=== PATIENT | male | born 1950 | race Two or more races ===

== ENCOUNTER 2023-08-10 23:09 | Inpatient (IN) | payer MEDICARE, MEDICAID ==
[~2023-08-10] VITALS: Ht 188 cm; Wt 52.0 kg
[2023-08-10] MEDS ORDERED: dilTIAZem 25 MG/5 ML VIAL IV ONE ×2 (23:25→23:45)
[2023-08-10] MEDS ORDERED: FUROSEMIDE 40 MG/4 ML VIAL IV ONE ×2 (23:45)
[2023-08-10] MEDS ORDERED: ADENOSINE 6 MG/2 ML INJ IV ONE (23:45)
[2023-08-10 23:54] LABS: Hematocrit 46.8 % (41.0-53.0); Hemoglobin 15.4 g/dL (13.5-17.5); Mean Corpuscular Hemoglobin 30.1 pg (28.0-32.0); Mean Corpuscular Volume 91.2 fL (80.0-100.0); Red Blood Cells 5.13 10^6/uL (4.5-5.90); Red Cell Distribution Width 17.2 % (11.8-14.3); White Blood Cell 25.4 10^3/uL (4.4-10.8)
[2023-08-10 23:57] LABS: Basophils % (manual) 0 (0.0-2.0); Blast Cells 0; Eosinophils % (manual) 0 (0-7); Metamyelocytes % 0; Myelocytes % 0; Promyelocytes % 0; Reactive Lymphocytes 0
[2023-08-11] VITALS (13 sets, daily range): BP systolic 82–111; BP diastolic 49–84; PULSE 85–103; RESP 17–34; TEMP 97.5–98.4; O2SAT 96–100
[2023-08-11] MEDS ORDERED: dilTIAZem 25 MG/5 ML VIAL IV ONE
[2023-08-11 00:10] LABS: Lactic Acid w/Reflex 3.6 mmol/L (0.4-2.0)
[2023-08-11 00:13] LABS: Alanine Aminotransferase 33 U/L (7-40); Albumin 4.5 g/dL (3.2-4.8); Alkaline Phosphatase 142 U/L (46-116); Anion Gap 12 (5-15); Aspartate Aminotransferase 28 U/L (13-40); BUN/Creatinine Ratio 14.9 (10.0-20.0); Bilirubin, Total 1.1 mg/dL (0.2-1.0); Blood Urea Nitrogen 14 mg/dL (9-23); Calcium 9.2 mg/dL (8.7-10.4); Carbon Dioxide 19 mmol/L (20-30); Chloride 102 mmol/L (98-107); Glucose 387 mg/dL (74-106); Magnesium 1.7 mg/dL (1.6-2.6); Potassium 4.4 mmol/L (3.5-5.1); Sodium 133 mmol/L (136-145); Total Protein 7.2 g/dL (5.7-8.2)
[2023-08-11] MEDS ORDERED: MORPHINE SULFATE 4 MG/ML SYR/VIAL IV ONE (00:15)
[2023-08-11] MEDS ORDERED: ONDANSETRON HCL 4 MG/2 ML VIAL IV ONE (00:15)
[2023-08-11 00:34] LABS: Band Neutrophils % (manual) 1; Lymphocytes % (manual) 4 (10.0-50.0); Monocytes % (manual) 3 (0-12); Platelet Estimate Adequate
[2023-08-11] MEDS ORDERED: levoFLOXacin 750MG 150 ML IV ONE (00:45)
[2023-08-11] MEDS ORDERED: IOHEXOL 350 MG/ML 100ML IJ ONE (00:56)
[2023-08-11] MEDS ORDERED: KETOROLAC TROMETH 30 MG/ML 1ML VIAL IV ONE ×2 (01:30→02:45)
[2023-08-11] MEDS ORDERED: ASPirin 325 MG TAB PO ONE (02:45)
[2023-08-11] MEDS ORDERED: NITROGLYCERIN 0.4 MG SL TAB SL PRN (03:00)
[2023-08-11] MEDS ORDERED: ACETAMINOPHEN 325 MG TAB PO PRN (03:00)
[2023-08-11] MEDS ORDERED: ONDANSETRON HCL 4 MG/2 ML VIAL IV PRN (03:00)
[2023-08-11] MEDS ORDERED: DOCUSATE SOD 100 MG CAP PO PRN (03:00)
[2023-08-11] MEDS ORDERED: VANCOMYCIN PER PHARMACY 0 MG IV SCH (03:00)
[2023-08-11] MEDS ORDERED: DEXTROSE (50%) 50ML SYRG IV PRN (03:00)
[2023-08-11] MEDS ORDERED: VANCOMYCIN 1GM/250ML 250 ML IV ONE (03:30)
[2023-08-11 03:42] LABS: Rapid Influenza A Negative (Negative); Rapid Influenza B Negative (Negative)
[2023-08-11 03:43] LABS: COVID19 ANTIGEN SOFIA FIA NEGATIVE (NEGATIVE)
[2023-08-11] MEDS ORDERED: NOREPINEPHRINE 8 MG/250ML KIT 250 ML IV SCH (04:15)
[2023-08-11] MEDS ORDERED: NOREPINEPHRINE 8 MG/250ML KIT 250 ML IV ONE (04:16)
[2023-08-11] MEDS ORDERED: PHENTOLAMINE MESYLATE 5 MG INJ VIAL SUBCUT ONE (05:15)
[2023-08-11] MEDS: ACCU-CHEK COMFORT CURVE STRIP VI SCH ×4 (06:00→23:29)
[2023-08-11] MEDS: SODIUM CHLOR 0.9% PF (SALINE LOCK) 10ML VIAL/SYR IV SCH ×3 (06:00→22:07)
[2023-08-11] MEDS: InsuLIN REG 1unit/0.01ml Soln (100units/ml) SC SCH ×4 (06:57→23:36)
[2023-08-11] MEDS ORDERED: diphenhdrAMINE HCL 50 MG/1 ML VL IV PRN (07:15)
[2023-08-11 07:46] LABS: Basophils # (auto) 0.1 10 ^3/uL (0-0.2); Basophils % (auto) 0.5 % (0.0-2.0); Eosinophils # (auto) 0 10 ^3/uL (0-0.8); Hematocrit 41.1 % (41.0-53.0); Hemoglobin 13.6 g/dL (13.5-17.5); Lymphocytes # (auto) 1.1 10 ^3/uL (0.4-5.4); Lymphocytes % (auto) 5.5 % (10.0-50.0); Mean Corpuscular Hemoglobin 30.2 pg (28.0-32.0); Mean Corpuscular Hgb Conc. 33.1 g/dL (32.0-36.0); Mean Corpuscular Volume 91.1 fL (80.0-100.0); Monocytes % (auto) 5.1 % (0.0-12.0); Neutrophils # (auto) 17.1 10 ^3/uL (1.6-8.6); Neutrophils % (auto) 88.9 % (37.0-80.0); Nucleated Red Blood Cells % 0.1 %; Red Blood Cells 4.51 10^6/uL (4.5-5.90); Red Cell Distribution Width 17.3 % (11.8-14.3); White Blood Cell 19.2 10^3/uL (4.4-10.8)
[2023-08-11 08:02] LABS: Alanine Aminotransferase 25 U/L (7-40); Albumin 3.1 g/dL (3.2-4.8); Alkaline Phosphatase 86 U/L (46-116); Anion Gap 12 (5-15); Aspartate Aminotransferase 21 U/L (13-40); BUN/Creatinine Ratio 25.4 (10.0-20.0); Blood Urea Nitrogen 18 mg/dL (9-23); Calcium 7.3 mg/dL (8.5-10.1); Carbon Dioxide 19 mmol/L (20-30); Chloride 104 mmol/L (98-107); Potassium 5.1 mmol/L (3.5-5.1); Sodium 135 mmol/L (136-145)
[2023-08-11 08:03] LABS: Bilirubin, Total 0.7 mg/dL (0.2-1.0); Total Protein 4.6 g/dL (5.7-8.2)
[2023-08-11 08:07] LABS: Glucose 251 mg/dL (74-106)
[2023-08-11] MEDS ORDERED: CARVEDILOL 12.5 MG TAB PO SCH (10:00)
[2023-08-11] MEDS ORDERED: FUROSEMIDE 40 MG/4 ML VIAL IV SCH (10:00)
[2023-08-11] MEDS: ASPirin 81 mg TAB PO SCH (10:41)
[2023-08-11] MEDS: FAMOTIDINE (10MG/ML) 2ML VL IV SCH (10:41)
[2023-08-11] MEDS: ENOXAPARIN SOD 40 MG/0.4 ML SYRINGE SC SCH (10:42)
[2023-08-11] MEDS ORDERED: DexAMETHasone SOD PHOS 10MG/1ML VIAL INJ IV ONE (11:30)
[2023-08-11] MEDS ORDERED: MAGNESIUM SULFATE 1GM/100ML 100 ML IV ONE (13:30)
[2023-08-11 13:32] LABS: Urine Bacteria NONE SEEN /hpf (None Seen); Urine Blood 2+ /uL (Negative); Urine Clarity Clear (Clear); Urine Color Colorless (Yellow); Urine Hyaline Cast FEW /lpf (0 - 2); Urine Protein, UAD 2+ (Negative); Urine Specific Gravity 1.029 (1.001-1.035); Urine Urobilinogen Normal (Negative); Urine WBC 11 /hpf (0 - 3); Urine pH 5.5 (5.0-8.0)
[2023-08-11 13:41] LABS: Amphetamine Screen, Urine Neg (NEGATIVE); Benzodiazephine Screen, Urine Neg (NEGATIVE)
[2023-08-11 13:42] LABS: Barbiturate Scree,Urine Neg (NEGATIVE); Cannabinoid Screen, Urine Neg (NEGATIVE); Cocaine Screen, Urine Neg (NEGATIVE); Opiate Scree,Urine Neg (NEGATIVE); Phencyclidine Screen, Urine Neg (NEGATIVE)
[2023-08-11] MEDS: IPRATROPIUM BROM 0.5 MG/2.5ML INH SOL NEB SCH ×3 (14:39→22:08)
[2023-08-11] MEDS: ALBUTEROL MEDNEB 2.5 mg/3ml NEB NEB SCH ×3 (14:39→22:08)
[2023-08-11 15:16] LABS: Triglycerides 131 mg/dL (< 150)
[2023-08-11 15:17] LABS: LDL Cholesterol 122 mg/dL (< 100)
[2023-08-11 15:18] LABS: Cholesterol 174 mg/dL (< 200); HDL Cholesterol 39 mg/dL (40-59)
[2023-08-11 17:15] LABS: INR 1.18 (0.9-1.15); Prothrombin Time 12.3 sec (9.3-11.8)
[2023-08-11] MEDS: FUROSEMIDE 40 MG/4 ML VIAL IV SCH (18:43)
[2023-08-11] MEDS: MORPHINE SULFATE INJ 2 MG/ml SYRG IV PRN (21:30)
[2023-08-11] MEDS: levoFLOXacin 500MG 100 ML IV SCH (21:40)
[2023-08-12] VITALS (19 sets, daily range): BP systolic 77–116; BP diastolic 39–63; PULSE 51–104; RESP 16–22; TEMP 36.6; O2SAT 95–100
[2023-08-12] MEDS: IPRATROPIUM BROM 0.5 MG/2.5ML INH SOL NEB SCH ×6 (01:48→21:49)
[2023-08-12] MEDS: ALBUTEROL MEDNEB 2.5 mg/3ml NEB NEB SCH ×6 (01:48→21:49)
[2023-08-12 05:36] LABS: Basophils # (auto) 0 10 ^3/uL (0-0.2); Basophils % (auto) 0.1 % (0.0-2.0); Eosinophils # (auto) 0 10 ^3/uL (0-0.8); Hematocrit 34.1 % (41.0-53.0); Hemoglobin 11.2 g/dL (13.5-17.5); Lymphocytes # (auto) 0.6 10 ^3/uL (0.4-5.4); Lymphocytes % (auto) 4.1 % (10.0-50.0); Mean Corpuscular Hemoglobin 29.7 pg (28.0-32.0); Mean Corpuscular Hgb Conc. 32.9 g/dL (32.0-36.0); Mean Corpuscular Volume 90.4 fL (80.0-100.0); Monocytes # (auto) 0.8 10 ^3/uL (0-1.3); Monocytes % (auto) 5.6 % (0.0-12.0); Neutrophils # (auto) 12.3 10 ^3/uL (1.6-8.6); Neutrophils % (auto) 90.2 % (37.0-80.0); Red Blood Cells 3.78 10^6/uL (4.5-5.90); Red Cell Distribution Width 17.3 % (11.8-14.3); White Blood Cell 13.7 10^3/uL (4.4-10.8)
[2023-08-12 05:56] LABS: Alanine Aminotransferase 19 U/L (7-40); Albumin 3.7 g/dL (3.2-4.8); Alkaline Phosphatase 86 U/L (46-116); Anion Gap 8 (5-15); Aspartate Aminotransferase 13 U/L (13-40); BUN/Creatinine Ratio 24.7 (10.0-20.0); Blood Urea Nitrogen 24 mg/dL (9-23); Carbon Dioxide 27 mmol/L (20-30); Chloride 100 mmol/L (98-107); Glucose 216 mg/dL (74-106); Magnesium 1.7 mg/dL (1.6-2.6); Potassium 4.4 mmol/L (3.5-5.1); Sodium 135 mmol/L (136-145)
[2023-08-12 05:57] LABS: Bilirubin, Total 0.9 mg/dL (0.2-1.0); Total Protein 5.8 g/dL (5.7-8.2)
[2023-08-12] MEDS: InsuLIN REG 1unit/0.01ml Soln (100units/ml) SC SCH ×3 (06:22→17:22)
[2023-08-12] MEDS: ACCU-CHEK COMFORT CURVE STRIP VI SCH ×3 (06:25→17:21)
[2023-08-12] MEDS: SODIUM CHLOR 0.9% PF (SALINE LOCK) 10ML VIAL/SYR IV SCH ×3 (06:25→20:51)
[2023-08-12] MEDS: FUROSEMIDE 40 MG/4 ML VIAL IV SCH ×2 (06:25→17:35)
[2023-08-12] MEDS: DexAMETHasone SOD PHOS 10MG/1ML VIAL INJ IV SCH (09:37)
[2023-08-12] MEDS: ASPirin 81 mg TAB PO SCH (09:37)
[2023-08-12] MEDS: FAMOTIDINE (10MG/ML) 2ML VL IV SCH (09:37)
[2023-08-12] MEDS: ENOXAPARIN SOD 40 MG/0.4 ML SYRINGE SC SCH (09:37)
[2023-08-12] MEDS: levoFLOXacin 500MG 100 ML IV SCH (20:51)
[2023-08-12] MEDS: MORPHINE SULFATE INJ 2 MG/ml SYRG IV PRN (21:16)
[2023-08-13] VITALS (19 sets, daily range): BP systolic 81–135; BP diastolic 55–75; PULSE 84–104; RESP 15–20; TEMP 97.6–98.3; O2SAT 87–100
[2023-08-13] MEDS: InsuLIN REG 1unit/0.01ml Soln (100units/ml) SC SCH ×5 (00:34→23:43)
[2023-08-13] MEDS: ACCU-CHEK COMFORT CURVE STRIP VI SCH ×5 (00:34→23:39)
[2023-08-13] MEDS: IPRATROPIUM BROM 0.5 MG/2.5ML INH SOL NEB SCH ×6 (01:58→21:53)
[2023-08-13] MEDS: ALBUTEROL MEDNEB 2.5 mg/3ml NEB NEB SCH ×6 (01:58→21:53)
[2023-08-13] MEDS: FUROSEMIDE 40 MG/4 ML VIAL IV SCH (05:42)
[2023-08-13] MEDS: SODIUM CHLOR 0.9% PF (SALINE LOCK) 10ML VIAL/SYR IV SCH ×4 (05:42→21:45)
[2023-08-13 05:47] LABS: Anion Gap 5 (5-15); Carbon Dioxide 29 mmol/L (20-30); Chloride 100 mmol/L (98-107); Potassium 4.7 mmol/L (3.5-5.1); Sodium 134 mmol/L (136-145)
[2023-08-13 05:48] LABS: Calcium 9.4 mg/dL (8.7-10.4)
[2023-08-13] MEDS: HYDROcodone-ACET 5/325MG TAB PO PRN ×2 (05:52→15:46)
[2023-08-13 05:53] LABS: Glucose 238 mg/dL (74-106)
[2023-08-13 05:54] LABS: Magnesium 1.9 mg/dL (1.6-2.6)
[2023-08-13 07:14] LABS: BUN/Creatinine Ratio 25.8 (10.0-20.0); Blood Urea Nitrogen 24 mg/dL (9-23)
[2023-08-13] MEDS: ENOXAPARIN SOD 40 MG/0.4 ML SYRINGE SC SCH (09:55)
[2023-08-13] MEDS: ASPirin 81 mg TAB PO SCH (09:55)
[2023-08-13] MEDS: DexAMETHasone SOD PHOS 10MG/1ML VIAL INJ IV SCH (09:56)
[2023-08-13] MEDS: FAMOTIDINE (10MG/ML) 2ML VL IV SCH (09:56)
[2023-08-13] MEDS: FUROSEMIDE 20 MG TAB PO SCH (18:04)
[2023-08-13] MEDS: levoFLOXacin 500MG 100 ML IV SCH (21:45)
[2023-08-14] VITALS (25 sets, daily range): BP systolic 94–114; BP diastolic 53–77; PULSE 80–102; RESP 12–22; TEMP 97.4–98.7; O2SAT 95–100
[2023-08-14] MEDS: ALBUTEROL MEDNEB 2.5 mg/3ml NEB NEB SCH ×6 (02:11→22:32)
[2023-08-14] MEDS: IPRATROPIUM BROM 0.5 MG/2.5ML INH SOL NEB SCH ×6 (02:11→22:32)
[2023-08-14] MEDS: HYDROcodone-ACET 5/325MG TAB PO PRN ×3 (04:09→15:49)
[2023-08-14] MEDS: SODIUM CHLOR 0.9% PF (SALINE LOCK) 10ML VIAL/SYR IV SCH ×3 (06:00→23:10)
[2023-08-14] MEDS: InsuLIN REG 1unit/0.01ml Soln (100units/ml) SC SCH ×3 (06:00→18:08)
[2023-08-14] MEDS: FUROSEMIDE 20 MG TAB PO SCH ×2 (06:00→18:01)
[2023-08-14] MEDS ORDERED: IODIXANOL 320MG/ML 100ML BTL IV ONE ×3 (07:46→09:21)
[2023-08-14] MEDS ORDERED: LIDOCAINE 2%HCL (LOCAL ANESTH.) INJ 20ML MDV ONE ×2 (07:46→08:34)
[2023-08-14] MEDS: ACCU-CHEK COMFORT CURVE STRIP VI SCH ×3 (08:07→18:01)
[2023-08-14] MEDS ORDERED: HEPARIN SODIUM (PORCINE) 5000 UNITS/ML 1ML VIAL ONE (08:33)
[2023-08-14] MEDS ORDERED: ANGIOMAX 250 MG VIAL IV ONE (08:33)
[2023-08-14] MEDS ORDERED: MIDAZOLAM HCL 2MG/2ML 2ml VIAL (1mg/ml) ONE (08:34)
[2023-08-14] MEDS ORDERED: VERAPAMIL 2.5MG/ML INJ 2ML VIAL IV ONE (08:34)
[2023-08-14] MEDS ORDERED: fentaNYL CITRATE 100 MCG/2 ML VL ONE (08:34)
[2023-08-14] MEDS ORDERED: SODIUM CHL 0.9% 50 ML ONE ×2 (08:34→08:37)
[2023-08-14] MEDS ORDERED: NITROGLYCERIN 5MG/ML 10ML VIAL IV ONE (08:37)
[2023-08-14] MEDS ORDERED: EPINEPHrine HCL 1 MG/10 ML SYRG ONE (09:28)
[2023-08-14] MEDS ORDERED: ATROPINE SULF 1 MG/10ml SYR ONE (09:28)
[2023-08-14] MEDS ORDERED: CLOPIDOGREL 300 MG TAB ONE (09:34)
[2023-08-14] MEDS: ENOXAPARIN SOD 40 MG/0.4 ML SYRINGE SC SCH (10:00)
[2023-08-14] MEDS: CARVEDILOL 3.125 MG TAB PO SCH ×2 (10:00→23:10)
[2023-08-14] MEDS: LISINOPRIL 5 MG TAB PO SCH (10:00)
[2023-08-14] MEDS: CLOPIDOGREL BISULFATE 75 MG TAB PO SCH (10:47)
[2023-08-14] MEDS: ASPirin 81 mg TAB PO SCH (11:19)
[2023-08-14] MEDS: DexAMETHasone SOD PHOS 10MG/1ML VIAL INJ IV SCH (11:19)
[2023-08-14] MEDS: ATORVASTATIN 20 MG TAB PO SCH (22:49)
[2023-08-14] MEDS: levoFLOXacin 500MG 100 ML IV SCH (22:49)
[2023-08-15] VITALS (20 sets, daily range): BP systolic 76–110; BP diastolic 39–63; PULSE 80–103; RESP 16–20; TEMP 97.2–98.4; O2SAT 90–100
[2023-08-15] MEDS: InsuLIN REG 1unit/0.01ml Soln (100units/ml) SC SCH ×4 (00:29→18:18)
[2023-08-15] MEDS: ACCU-CHEK COMFORT CURVE STRIP VI SCH ×5 (00:30→23:54)
[2023-08-15] MEDS: IPRATROPIUM BROM 0.5 MG/2.5ML INH SOL NEB SCH ×7 (02:00→22:28)
[2023-08-15] MEDS: ALBUTEROL MEDNEB 2.5 mg/3ml NEB NEB SCH ×7 (02:00→22:28)
[2023-08-15] MEDS: HYDROcodone-ACET 5/325MG TAB PO PRN ×3 (04:30→22:20)
[2023-08-15] MEDS: SODIUM CHLOR 0.9% PF (SALINE LOCK) 10ML VIAL/SYR IV SCH ×3 (06:34→21:37)
[2023-08-15] MEDS: CARVEDILOL 3.125 MG TAB PO SCH ×2 (10:10→21:32)
[2023-08-15] MEDS: CLOPIDOGREL BISULFATE 75 MG TAB PO SCH (10:10)
[2023-08-15] MEDS: LISINOPRIL 5 MG TAB PO SCH (10:10)
[2023-08-15] MEDS: ASPirin 81 mg TAB PO SCH (10:10)
[2023-08-15] MEDS: ENOXAPARIN SOD 40 MG/0.4 ML SYRINGE SC SCH (10:11)
[2023-08-15] MEDS: DexAMETHasone SOD PHOS 10MG/1ML VIAL INJ IV SCH (10:11)
[2023-08-15 11:25] LABS: COVID19 ANTIGEN SOFIA FIA NEGATIVE (NEGATIVE)
[2023-08-15] MEDS: FUROSEMIDE 40 MG TAB PO SCH (18:15)
[2023-08-15] MEDS: levoFLOXacin 500MG 100 ML IV SCH (21:32)
[2023-08-15] MEDS: ATORVASTATIN 20 MG TAB PO SCH (21:36)
[2023-08-16] VITALS (12 sets, daily range): BP systolic 92–96; BP diastolic 53; PULSE 72–100; RESP 18–20; TEMP 97.2–97.8; O2SAT 93–100
[2023-08-16] MEDS: InsuLIN REG 1unit/0.01ml Soln (100units/ml) SC SCH ×3 (00:28→12:20)
[2023-08-16] MEDS: IPRATROPIUM BROM 0.5 MG/2.5ML INH SOL NEB SCH ×4 (02:11→14:29)
[2023-08-16] MEDS: ALBUTEROL MEDNEB 2.5 mg/3ml NEB NEB SCH ×4 (02:11→14:29)
[2023-08-16] MEDS: ACCU-CHEK COMFORT CURVE STRIP VI SCH ×2 (05:42→12:18)
[2023-08-16] MEDS: FUROSEMIDE 40 MG TAB PO SCH (05:51)
[2023-08-16] MEDS: SODIUM CHLOR 0.9% PF (SALINE LOCK) 10ML VIAL/SYR IV SCH ×2 (05:53→14:00)
[2023-08-16] MEDS: LISINOPRIL 5 MG TAB PO SCH (10:00)
[2023-08-16] MEDS: CARVEDILOL 3.125 MG TAB PO SCH (10:00)
[2023-08-16] MEDS: ASPirin 81 mg TAB PO SCH (11:14)
[2023-08-16] MEDS: DexAMETHasone SOD PHOS 10MG/1ML VIAL INJ IV SCH (11:15)
[2023-08-16] MEDS: ENOXAPARIN SOD 40 MG/0.4 ML SYRINGE SC SCH (11:15)
[2023-08-16] MEDS: CLOPIDOGREL BISULFATE 75 MG TAB PO SCH (11:15)
== END 2023-08-16 16:40 | DRG 853 ==
LOC: ER 23:09 → EDBD 23:09 → TELE 08-11 02:54 → TELE-CENTR 08-11 22:58
PROVIDERS: ADMIT Nurse Practitioner Family; ATTEND Family Medicine
PROC: 06HY33Z Insertion of Infusion Device into Lower Vein, Percutaneous Approach (ICD-10-PCS; 2023-08-10)
PROC: 5A09357 Assistance with Respiratory Ventilation, Less than 24 Consecutive Hours, Continuous Positive Airway Pressure (ICD-10-PCS; 2023-08-10)
PROC: 4A023N7 Measurement of Cardiac Sampling and Pressure, Left Heart, Percutaneous Approach (ICD-10-PCS; principal; 2023-08-14)
PROC: 027034Z Dilation of Coronary Artery, One Artery with Drug-eluting Intraluminal Device, Percutaneous Approach (ICD-10-PCS; 2023-08-14)
PROC: B211YZZ Fluoroscopy of Multiple Coronary Arteries using Other Contrast (ICD-10-PCS; 2023-08-14)
PROC: B215YZZ Fluoroscopy of Left Heart using Other Contrast (ICD-10-PCS; 2023-08-14)
DX: A41.9 Sepsis, unspecified organism (principal); I21.4 Non-ST elevation (NSTEMI) myocardial infarction; J18.9 Pneumonia, unspecified organism; I50.23 Acute on chronic systolic (congestive) heart failure; J96.01 Acute respiratory failure with hypoxia; R65.21 Severe sepsis with septic shock; I47.10 Supraventricular tachycardia, unspecified; J44.0 Chronic obstructive pulmonary disease with (acute) lower respiratory infection; E87.21 Acute metabolic acidosis; N39.0 Urinary tract infection, site not specified; I42.0 Dilated cardiomyopathy; J44.1 Chronic obstructive pulmonary disease with (acute) exacerbation; J98.11 Atelectasis; R64 Cachexia; Z68.1 Body mass index [BMI] 19.9 or less, adult; Z20.822 Contact with and (suspected) exposure to COVID-19; E78.5 Hyperlipidemia, unspecified; E11.9 Type 2 diabetes mellitus without complications; F17.200 Nicotine dependence, unspecified, uncomplicated; I11.0 Hypertensive heart disease with heart failure; I16.0 Hypertensive urgency; I25.10 Atherosclerotic heart disease of native coronary artery without angina pectoris; Z79.02 Long term (current) use of antithrombotics/antiplatelets; Z86.73 Personal history of transient ischemic attack (TIA), and cerebral infarction without residual deficits; Z88.0 Allergy status to penicillin; Z91.199 Patient's noncompliance with other medical treatment and regimen due to unspecified reason; Z95.5 Presence of coronary angioplasty implant and graft
CPT/HCPCS: 36415; 36600; 71045; 71275; 80048; 80053; 80061; 80307; 81001; 82805; 82962; 83036; 83605; 83735; 83880; 84443; 84484; 85007; 85025; 85027; 85379; 85610; 87040; 87086; 87426; 87804; 92941; 93005; 93458; 93970; 94640; 94660; 96365; 96367; 96368; 96375; 97110; 97116; 97163; 99152; G0378; J1100; J1815; J1885; J1956; J2250; J2405; J3490; Q9967